=== PATIENT | male | born 1985 | race Caucasian/White ===

== ENCOUNTER 2023-01-26 19:12 | Emergency (ER) | payer SELFPAY ==
[~2023-01-26] VITALS: Ht 180.3 cm; Wt 108.9 kg
[2023-01-26 20:02] VITALS: BP 164/82; TEMP 98.4
[2023-01-26] MEDS ORDERED: IBUPROFEN 600 MG TABLET ONE (21:11)
[2023-01-26] MEDS ORDERED: IBUPROFEN 600 MG TABLET PO ONE (21:30)
[2023-01-26 21:52] VITALS: O2SAT 98
== END 2023-01-26 21:53 | disposition home or self-care (01) ==
LOC: ER 19:30
DX: S53.492A Other sprain of left elbow, initial encounter (principal); V89.2XXA Person injured in unspecified motor-vehicle accident, traffic, initial encounter; Y93.89 Activity, other specified; Y92.89 Other specified places as the place of occurrence of the external cause; Y99.8 Other external cause status
CPT/HCPCS: 73080-TC